=== PATIENT | male | born 1960 | race Caucasian/White ===

== ENCOUNTER → 2020-07-25 17:13 | Outpatient (BNVA) | payer BC, SELFPAY | PROVIDERS: Family Provider Nurse Practitioner; PCP Nurse Practitioner; Visit Provider Nurse Practitioner | DX: Z11.59 Encounter for screening for other viral diseases (principal) | CPT/HCPCS: 87635 ==

== ENCOUNTER 2020-09-21 14:00 | Outpatient (CLI) | payer BC, SELFPAY ==
--- NOTE | 2020-09-21 14:10 | US_ITS ---
WS: [id number] INDICATION: Left arm mass TECHNIQUE: Ultrasound soft tissue FINDINGS: Ultrasound left medial elbow in the area of concern. Mixed echogenicity soft tissue lesion in the area of concern measuring 4.3 x 3.6 x 6.4 CM. No evidence of internal vascularity. This lesion is nonspecific and could be further evaluated with MRI or CT. US/US soft tissue/extremity [id number] IMPRESSION: Soft tissue lesion with mixed echogenicity in the area of concern. This has a nonspecific appearance and could be further evaluated with MRI or CT . Differential considerations include hematoma or possibly intramuscular lipoma
== END 2020-09-21 14:01 | disposition home or self-care (01) ==
LOC: RAD 14:07
PROVIDERS: PCP Internal Medicine; Visit Provider Internal Medicine
DX: R22.32 Localized swelling, mass and lump, left upper limb (principal)
CPT/HCPCS: 76882

== ENCOUNTER 2021-07-25 08:53 | Emergency (ER) | payer OTHER, SELFPAY ==
[2021-07-25 09:08] VITALS: BP 143/89; PULSE 66; RESP 18; TEMP 36.6; O2SAT 97; BMI 27.1
--- NOTE | 2021-07-25 09:12 | W.ED.EYEPROB ---
HPI - Eye Problem General: Chief complaint: Eye Problems Stated complaint: THINKS MAY HAVE METAL IN L EYE Time Seen by Provider: 07/25/21 09:08 Source: patient Mode of arrival: ambulatory Limitations: no limitations History of Present Illness: HPI Narrative: Patient is a nice 61-year-old male here for complaints of a possible piece of metal in his left eye. Patient tells me 2 days ago he was grinding metal and felt something flick into his eye. Patient delayed care because he was unsure if there was actually something in it. He is not complaining of blurry or changed vision. He does state that eye has been watering frequently. He complains of a continued foreign body sensation. Tetanus is UTD. chief complaint: eye pain and foreign body Onset (ago): day(s) Onset description: sudden Duration: constant Location: left eye Eye Symptoms: pain, foreign body sensation and discharge (watering) Place: home Mechanism: occurred while hammering/grinding Severity: mild Associated symptoms: Reports no associated symptoms; Denies fever(s) Treatments Prior to Arrival: none Related Data: Patient tetanus UTD: Yes Review of Systems Const: Denies: fever(s), chills or body aches Eyes: Reports: eye discomfort and eye discharge (watery); Denies: change in vision, blurry vision, photophobia, floaters or seeing flashes [facility] ED PFSH: Medical History (Updated 07/25/21 @ 09:46 by ROME Hernandez) Essential (primary) hypertension History of tick-borne relapsing fever Surgical History (Updated 07/26/20 @ 09:20 by AUBREE Montelongo) No history of previous surgery Family History Other Cancer Diabetes Hypertension Social History Smoking and tobacco status: never smoked Second hand smoke exposure: No Smoking risk assessment/counseling performed?: No Alcohol intake: never Desire information about alcohol rehabilitation?: No Counseling given: No Desire information about substance/drug rehabilitation?: No Counseling given: No Adopted: No Caregiver/support person: No Lives independently: Yes Household members: children Marital status: service: No Current occupational status: employed Current occupation: Self History of recent travel: No Current gender identity: Male Physical Exam Const: COMMON NORMALS: no acute distress, average body habitus, patient oriented x3, no limitations, healthy appearing, alert and well nourished GENERAL APPEARANCE: cooperative Eye: COMMON NORMALS: Equal, round and reactive pupils present and EOMs intact bilaterally GENERAL EYE: normal light reflex VISUAL ACUITY: Yes acuity normal VISUAL GUZMAN: No peripheral vision loss PERIORBITAL: periorbital findings normal EYELID: eyelids normal CONJUNCTIVA: Yes conjunctival abnormal positive left conjunctival injection SCLERA: sclerae normal CORNEA: Yes other (small metal fb on cornea) PUPIL: Yes Equal, round and reactive pupils present DIRECT OPHTHALMOSCOPY: Yes normal light reflex Neuro: COMMON NORMALS: patient oriented x3 SENSORIUM/ORIENTATION: Yes alert Procedures FB Removal Eye Time Out performed: No Location: eye (L) Topical anesthetic used: tetracaine Foreign body: metal Evidence of corneal penetration: No Technique: cotton tip swab Procedure performed under: direct visualization with magnification Post-procedure medication: ophthalmic antibiotic Patient tolerated procedure: well Course Vital Signs: Vital signs: Vital Signs Temperature 97.9 F 07/25/21 09:08 Pulse Rate 66 07/25/21 09:08 Respiratory Rate 18 07/25/21 09:08 Blood Pressure 143/89 07/25/21 09:08 Pulse Oximetry 97 07/25/21 09:08 MDM - Eye Problem MDM Narrative: Medical decision making narrative: Fb removed easily with moist cotton swab. No rust ring present. Will place on erythromycin ointment. Tetanus is UTD. Discharge Plan Discharge Patient Disposition: Home Clinical Impression: Acute foreign body of cornea Qualifiers: Encounter type: initial encounter Laterality: left Qualified Code(s): T15.02XA - Foreign body in cornea, left eye, initial encounter Condition: Stable Prescriptions: New erythromycin 5 mg/gram (0.5 %) ointment 1 applic ophthalmic (eye) Q4H 7 Days Qty: 1 RF: 0 No Action promethazine 25 mg tablet 25 mg PO Q6H PRN (Reason: nausea and vomiting) Qty: 10 RF: 0 Discharge Orders: Discharge ED (Routine); Ordered 07/25/21 Ordered By: Aleyda Koch Referrals: Keon Talavera DO [Primary Care Provider] - Patient Instructions: Eye Foreign Body (ED) Coding Level of Care Code ED Cast Iron Drain Pipe Layer for Chg Fwd Exam Expanded Problem Focused
[2021-07-25] MEDS: erythromycin Op Oint 1 gm 1 APPLIC EYE-LEFT (09:49)
[2021-07-25 09:58] VITALS: BP 125/85; PULSE 71; RESP 19; O2SAT 97
== END 2021-07-25 09:53 | disposition home or self-care (01) ==
PROVIDERS: Emergency Provider Physician Assistant; PCP Internal Medicine
DX: T15.02XA Foreign body in cornea, left eye, initial encounter (principal); X58.XXXA Exposure to other specified factors, initial encounter; I10 Essential (primary) hypertension
CPT/HCPCS: 65222; 99282

== ENCOUNTER 2022-11-22 07:45 | Outpatient (CLI) | payer OTHER, SELFPAY ==
--- NOTE | 2022-11-22 07:56 | US_ITS ---
WS: [id number] RENAL ULTRASOUND HISTORY: LEFT FLANK PAIN COMPARISON: None available. TECHNIQUE: 2-D and color Doppler imaging of the kidney submitted. Right kidney: 10.2 cm x 5.0 cm x 6.7 cm. Normal echogenicity with no hydronephrosis or mass. Left kidney: 11.3 cm x 4.7 cm x 6.8 cm. Normal echogenicity with no hydronephrosis or mass. Aorta: Normal. Urinary Bladder: Normal distention. US/US renal BI* [id number] IMPRESSION: Normal renal ultrasound.
== END 2022-11-22 07:46 | disposition home or self-care (01) ==
LOC: RAD 07:45
PROVIDERS: PCP Internal Medicine; Visit Provider Internal Medicine
DX: R10.9 Unspecified abdominal pain (principal)
CPT/HCPCS: 76770

== ENCOUNTER → 2024-06-02 12:53 | Outpatient (BNVA) | payer MEDICARE, SELFPAY | PROVIDERS: PCP Internal Medicine; Visit Provider Nurse Practitioner | DX: M19.011 Primary osteoarthritis, right shoulder (principal); M25.811 Other specified joint disorders, right shoulder | CPT/HCPCS: 73030; 99204 ==

== ENCOUNTER → 2024-06-28 08:55 | Outpatient (BNVA) | payer MEDICARE, SELFPAY | PROVIDERS: PCP Internal Medicine; Visit Provider Podiatrist Foot & Ankle Surgery | DX: M20.22 Hallux rigidus, left foot | CPT/HCPCS: 99203 ==

== ENCOUNTER 2024-07-12 09:08 | Outpatient (CLI) | payer MEDICARE, SELFPAY ==
--- NOTE | 2024-07-12 09:30 | MR_ITS ---
WS: [id number] MRI RIGHT SHOULDER HISTORY: right shoulder pain COMPARISON: Radiograph 06/02/2014 TECHNIQUE: Multiplanar sequences of the shoulder joint are submitted. Marked AC joint arthritis. Narrowing of the AC joint with small erosions in the distal clavicle. Clav icular osteophyte extends inferior by 6 mm with significant contact and displacement of the supraspin atus muscle and tendon. Subacromial impingement. No os acromion. Biceps tendon not identified in the bicipital groove. Markedly high riding humeral head abuts the undersurface of the acromion. Advanced degenerative salomon es of osteophytes and subchondral edema surrounding the humeral head. Moderate narrowing the glenohum eral joint. Mild atrophy of the supraspinatus muscle. There is a full-thickness supraspinatus tear directly over the humeral head with additional tendinopathy. There is a large fluid gap with retraction of the tend on. Mild thinning and tendinopathy in the distal supraspinatus but no tear. Teres minor and the infra spinatus tendon appear intact. Intrasubstance degeneration and fraying of the labrum. Very small superficial tear of the superior la kristin is suspected. MR/MR shoulder RT wo con* [id number] IMPRESSION: 1. Marked AC joint arthritis. 6 mm distal clavicular osteophyte with significa nt deformity on the supraspinatus. 2. High riding humeral head with a large tear involving the supraspinatus tend on directly over the humeral head. 3. Mild tendinopathy in the distal subscapularis tendon. 4. Moderate degenerative changes involve the glenohumeral joint and humeral he ad. 5. Mild supraspinatus muscle atrophy. 6. Biceps tendon is not identified in the bicipital groove. May be dislocated or torn.
== END 2024-07-12 09:09 | disposition home or self-care (01) ==
LOC: RAD 09:08
PROVIDERS: PCP Internal Medicine; Visit Provider Nurse Practitioner
DX: M13.811 Other specified arthritis, right shoulder (principal); M25.711 Osteophyte, right shoulder; M67.813 Other specified disorders of tendon, right shoulder
CPT/HCPCS: 73221

== ENCOUNTER → 2024-07-19 09:13 | Outpatient (BNVA) | payer MEDICARE, SELFPAY | PROVIDERS: PCP Internal Medicine; Visit Provider Nurse Practitioner | DX: S46.811A Strain of other muscles, fascia and tendons at shoulder and upper arm level, right arm, initial encounter (principal); X50.9XXA Other and unspecified overexertion or strenuous movements or postures, initial encounter; M25.811 Other specified joint disorders, right shoulder; M67.911 Unspecified disorder of synovium and tendon, right shoulder; M19.011 Primary osteoarthritis, right shoulder | CPT/HCPCS: 99214 ==

== ENCOUNTER → 2024-08-03 09:55 | Outpatient (BNVA) | payer MEDICARE, SELFPAY | PROVIDERS: PCP Internal Medicine; Visit Provider Nurse Practitioner | DX: S46.811A Strain of other muscles, fascia and tendons at shoulder and upper arm level, right arm, initial encounter (principal); M67.911 Unspecified disorder of synovium and tendon, right shoulder; M25.811 Other specified joint disorders, right shoulder; M19.011 Primary osteoarthritis, right shoulder; X58.XXXA Exposure to other specified factors, initial encounter | CPT/HCPCS: 36415; 80053; 81001; 85025 ==

== ENCOUNTER 2024-12-06 11:14 | Outpatient (CLI) | payer MEDICARE, SELFPAY | END 2024-12-06 11:15 | disposition home or self-care (01) | LOC: SLEEP 11:18 | PROVIDERS: PCP Internal Medicine; Visit Provider Specialist | DX: G47.33 Obstructive sleep apnea (adult) (pediatric) (principal) | CPT/HCPCS: G0399 ==